=== PATIENT | female | born 1945 | race Hispanic/Latino ===

== ENCOUNTER → 2017-06-24 | Outpatient (CLI) | payer OTHER | END | disposition home or self-care (01) | LOC: SHCH 10:03 | PROVIDERS: ATTEND Internal Medicine Cardiovascular Disease | DX: I08.1 Rheumatic disorders of both mitral and tricuspid valves (principal); I10 Essential (primary) hypertension | CPT/HCPCS: 93306 ==

== ENCOUNTER → 2017-11-28 | Outpatient (CLI) | payer OTHER | END | disposition home or self-care (01) | LOC: RAH 08:51 | PROVIDERS: ATTEND Family Medicine | DX: J90 Pleural effusion, not elsewhere classified (principal); R10.11 Right upper quadrant pain; Z90.49 Acquired absence of other specified parts of digestive tract | CPT/HCPCS: 76700 ==

== ENCOUNTER → 2018-04-28 | Outpatient (CLI) | payer OTHER | END | disposition home or self-care (01) | LOC: RAH 14:56 | PROVIDERS: ATTEND Family Medicine | DX: M79.9 Soft tissue disorder, unspecified (principal) | CPT/HCPCS: 76705 ==

== ENCOUNTER 2018-07-25 09:05 | Inpatient (IN) | payer OTHER ==
[~2018-07-25] VITALS: Ht 154.9 cm; Wt 88.4 kg
[2018-07-25 09:55] LABS: BASOPHILS % (AUTO) 0.6 % (0.0-5.0); EOSINOPHILS % (AUTO) 0.3 % (0.0-8.0); HEMATOCRIT 29.1 % (36-48); LYMPHOCYTES % (AUTO) 4.2 % (21.0-51.0); MEAN CORPUSCULAR HEMOGLOBIN 29.7 pg (27.0-33.0); MEAN CORPUSCULAR HGB CONC 32.4 g/dL (32.0-36.0); MEAN CORPUSCULAR VOLUME 91.6 fL (79-99); MONOCYTES % (AUTO) 4.8 % (3.0-13.0); NEUTROPHILS % (AUTO) 90.1 % (40.0-77.0); PLATELET COUNT (AUTO) 231 K/uL (130-400); RED BLOOD CELL COUNT(AUTO) 3.18 MIL/uL (4.00-5.50); RED CELL DISTRIBUTION WIDTH 18.1 % (11.0-15.5); WHITE BLOOD COUNT (AUTO) 12.1 K/uL (4.8-10.8)
[2018-07-25 10:08] LABS: ALBUMIN 2.4 g/dL (3.5-5.0); BILIRUBIN,TOTAL 0.8 mg/dL (0.2-1.0); POTASSIUM 5.4 mmol/L (3.5-5.1); TOTAL PROTEIN, SERUM 6.4 g/dL (6.0-8.3)
[2018-07-25 10:19] LABS: CREATININE 8.6 mg/dL (0.5-1.5)
[2018-07-25] MEDS ORDERED: IBUPROFEN 600 MG TABLET ONE (10:24)
[2018-07-25] MEDS ORDERED: IBUPROFEN 100 MG/5 ML SUSP UDCUP ONE (10:26)
[2018-07-25 10:31] LABS: B-TYPE NATRIURETIC PEPTIDE 3270 pg/mL (0-100)
[2018-07-25] MEDS ORDERED: ASPIRIN 81MG TAB.CHEW ONE (10:37)
[2018-07-25] MEDS ORDERED: SODIUM POLYSTYRENE SULFONATE 15 GM/60 ML ML ONE (11:12)
[2018-07-25] MEDS ORDERED: ONDANSETRON HCL 4 MG/2 ML VIAL IV PRN (11:45)
[2018-07-25] MEDS ORDERED: ACETAMINOPHEN 325 MG TAB PO PRN (11:45)
[2018-07-25] MEDS ORDERED: HYDRALAZINE HCL 20 MG/ML VIAL IV PRN ×2 (11:45→15:39)
[2018-07-25] MEDS ORDERED: NITROGLYCERIN 0.4 MG SL TAB SL PRN (11:45)
[2018-07-25] MEDS ORDERED: LACTULOSE 20 GM/30 ML UDCUP PO PRN (11:45)
[2018-07-25 14:05] LABS: TROPONIN I 0.13 ng/mL (0.00-0.06)
[2018-07-25 18:22] VITALS: BP 118/62
[2018-07-25] MEDS ORDERED: HEPARIN SODIUM 5000UNIT/ML 1ML VIAL IJ PRN (18:30)
[2018-07-25] MEDS ORDERED: 0.9% SODIUM CHLORIDE 1000 ML IV BAG IV PRN (18:30)
[2018-07-25] MEDS ORDERED: SODIUM CHLORIDE 0.9% 1000ML 1,000 ML IV PRN (18:30)
[2018-07-25] MEDS: INSULIN R PO SS1 SQ SCH ×2 (18:49→21:00)
--- NOTE | 2018-07-25 18:50 | NUR ---
DR TAN CAME IN EARLIER TO SEE THE PATIENT AND NOTIFIED DIALYSIS NURSE. DIALYSIS NURSE IS HERE TO GIVE HER TREATMENT. ADMISSION DATABASE IS DONE WITH THE LIMITED INFORMATION THAT THE PATIENT COULD REMEMBER ONLY. SHE WAS INTRODUCED TO THE ROOM ENVIRONMENT, THE CALL LIGHT USE AND THE TV. FALL PREVENTION WAS DISCUSSED WITH HER AND SHE VOICED UNDERSTANDING. BILATERAL 2ND TOES TO THE GREAT TOES ARE OBSERVED RED, MORE PRONOUNCE ON THE RIGHT FOOT. PATIENT STATED THAT SHE HAD HURT THEM WHEN SHE FELL AT HOME. NO OPEN WOUND SEEN ON THE SITES. NON-FUNCTIONING LAVA AND LEFT CHEST PERMA CATH OBSERVED. PATIENT STATED DISCOMFORT TO THE LEGS. WILL ENDORSE HER CARE TO THE INCOMING NURSE.
[2018-07-25 19:52] VITALS: BP 126/70
[2018-07-25 20:09] LABS: TROPONIN I 0.13 ng/mL (0.00-0.06)
[2018-07-25] MEDS: ACETAMINOPHEN 325 MG TAB PO PRN (22:29)
[2018-07-26] VITALS (7 sets, daily range): BP systolic 123–146; BP diastolic 44–78
[2018-07-26] MEDS: TRAMADOL HCL 50 MG TABLET PO PRN ×3 (01:43→16:00)
[2018-07-26] MEDS: INSULIN R PO SS1 SQ SCH ×4 (05:24→21:00)
[2018-07-26] MEDS: ACETAMINOPHEN 325 MG TAB PO PRN ×2 (05:24→19:43)
[2018-07-26 06:45] LABS: TROPONIN I 0.12 ng/mL (0.00-0.06)
[2018-07-26] MEDS ORDERED: AMLO5TAB9 PO (08:38)
[2018-07-26] MEDS ORDERED: UMEC1DIS IH (08:38)
[2018-07-26] MEDS ORDERED: PHEN32.43 PO (08:38)
[2018-07-26] MEDS ORDERED: FLUT15.88 NS (08:38)
[2018-07-26] MEDS ORDERED: FOLI0.8T2 PO (08:38)
[2018-07-26] MEDS ORDERED: CITA10TA13 PO (08:38)
[2018-07-26] MEDS ORDERED: LORA0.5T2 PO (08:38)
[2018-07-26] MEDS ORDERED: MUPI22OI2 TP (08:38)
[2018-07-26] MEDS ORDERED: FOLI1TAB15 PO (08:38)
[2018-07-26] MEDS ORDERED: TRAM50TA4 PO (08:48)
[2018-07-26] MEDS ORDERED: TRIA80OI15 TP (08:48)
[2018-07-26] MEDS ORDERED: ROSU10TA27 PO (08:48)
[2018-07-26] MEDS ORDERED: SENN1TAB53 PO (08:48)
[2018-07-26] MEDS: FAMOTIDINE/PF 20 MG/2 ML VIAL IV SCH (09:51)
[2018-07-26] MEDS ORDERED: MORPHINE SULFATE 2 MG/ML 1ML SYG IV PRN (13:00)
[2018-07-26] MEDS ORDERED: NON-FORMULARY MEDICATION 1 EACH (Umeclidinium Brm/Vilanterol Tr (Anoro Ellipta 62.5-25 Mcg IH PRN (16:00)
[2018-07-26] MEDS ORDERED: LORAZEPAM 0.5 MG TABLET PO PRN (16:00)
[2018-07-26] MEDS: IPRATROPIUM/ALBUTEROL SULFATE 3 ML SOLUTION IH SCH ×2 (19:35→23:28)
[2018-07-26] MEDS: HEPARIN SODIUM 5000UNIT/ML 1ML VIAL SQ SCH (19:44)
[2018-07-26] MEDS ORDERED: TRIAMCINOLONE ACETONIDE 0.1% CREAM 15GM TP PRN (20:52)
[2018-07-26] MEDS ORDERED: OSELTAMIVIR PHOSPHATE 75 MG CAP PO SCH (21:00)
[2018-07-26] MEDS: ROSUVASTATIN CALCIUM 10 MG PO SCH (21:00)
[2018-07-26] MEDS: DOCUSATE SODIUM PO SCH (21:00)
[2018-07-26] MEDS ORDERED: COMPOUND PO MISCELLANEOUS 1 EACH MISC MISC PRN (21:00)
[2018-07-26] MEDS: SENNOSIDES PO SCH (21:00)
[2018-07-26] MEDS: DOXYCYCLINE HYCLATE 100 MG TABLET PO SCH (21:56)
[2018-07-26] MEDS: AMLODIPINE BESYLATE 5 MG TAB PO SCH (21:56)
[2018-07-26] MEDS: OSELTAMIVIR SUSP 15 MG/ML (6 CAPS/29ML) PO SCH ×2 (21:56)
[2018-07-26] MEDS: CITALOPRAM 20 MG TABLET PO SCH (21:57)
[2018-07-26] MEDS: CARVEDILOL 3.125 MG TABLET PO SCH (21:57)
[2018-07-26] MEDS: HYDROMORPHONE HCL 0.5 MG/0.5 ML ML IVP PRN (22:03)
[2018-07-27 04:00] VITALS: BP 116/76
[2018-07-27 06:12] LABS: HEPATITIS A ANTIBODY IGM Negative (Negative); HEPATITIS B CORE IGM Negative (Negative); HEPATITIS Bs ANTIGEN SCREEN P Negative (Negative)
[2018-07-27 06:14] LABS: HEMATOCRIT 28.1 % (36-48); MEAN CORPUSCULAR HEMOGLOBIN 30.2 pg (27.0-33.0); MEAN CORPUSCULAR VOLUME 91.4 fL (79-99); PLATELET COUNT (AUTO) 217 K/uL (130-400); RED BLOOD CELL COUNT(AUTO) 3.08 MIL/uL (4.00-5.50); RED CELL DISTRIBUTION WIDTH 18.4 % (11.0-15.5); WHITE BLOOD COUNT (AUTO) 7.1 K/uL (4.8-10.8)
[2018-07-27 06:38] LABS: POTASSIUM 4.7 mmol/L (3.5-5.1); THYROID STIMULATING HORMONE 4.79 uIU/mL (0.36-3.74)
[2018-07-27] MEDS: IPRATROPIUM/ALBUTEROL SULFATE 3 ML SOLUTION IH SCH ×4 (07:14→23:13)
[2018-07-27] MEDS: INSULIN R PO SS1 SQ SCH ×4 (07:30→20:42)
[2018-07-27 08:22] VITALS: BP 122/71
[2018-07-27] MEDS: FLUTICASONE PROPIONATE 50MCG/SPRAY 16 GM BOTTLE NS SCH (09:00)
[2018-07-27] MEDS: FOLIC ACID/VITAMIN B COMP W-C 1 MG CAPSULE PO SCH (09:28)
[2018-07-27] MEDS: CARVEDILOL 3.125 MG TABLET PO SCH ×2 (09:29→20:41)
[2018-07-27] MEDS: DOXYCYCLINE HYCLATE 100 MG TABLET PO SCH ×2 (09:29→20:41)
[2018-07-27] MEDS: FOLIC ACID 1 MG TABLET PO SCH (09:29)
[2018-07-27] MEDS: PHENOBARBITAL 1/4 GR TABLET PO SCH (09:29)
[2018-07-27] MEDS: FAMOTIDINE/PF 20 MG/2 ML VIAL IV SCH (09:30)
[2018-07-27] MEDS: HEPARIN SODIUM 5000UNIT/ML 1ML VIAL SQ SCH ×2 (09:31→20:43)
[2018-07-27] MEDS: TRAMADOL HCL 50 MG TABLET PO PRN (09:35)
[2018-07-27] MEDS: OSELTAMIVIR SUSP 15 MG/ML (6 CAPS/29ML) PO SCH ×4 (09:47→20:41)
[2018-07-27 11:30] VITALS: BP 126/65
[2018-07-27] MEDS: HYDROMORPHONE HCL 0.5 MG/0.5 ML ML IVP PRN ×2 (12:26→23:53)
--- NOTE | 2018-07-27 13:52 | NUR ---
DCP CM met with pt discussed dc plans. Pt is semi-independent prior to admission, lives at home alone, daughter lives close by. Has a walker, goes to dialysis TTS. Pt feels safe to go back home, daughter able to assist with transportation and needs as necessary. DC plan to home once stble. CM to cont to follow up. Addendum: 07/28/18 at 1353 by ZURDO GUERRIER LVN CM Amended: Links added.
[2018-07-27] MEDS ORDERED: CARV3.1262 PO (14:50)
[2018-07-27] MEDS ORDERED: DOXY100T2 PO (14:50)
[2018-07-27] MEDS ORDERED: OSEL30CA PO (15:13)
[2018-07-27 16:42] VITALS: BP 117/59
[2018-07-27] MEDS: AMLODIPINE BESYLATE 5 MG TAB PO SCH ×2 (17:56→20:42)
[2018-07-27 19:19] VITALS: BP 125/56
[2018-07-27] MEDS: CITALOPRAM 20 MG TABLET PO SCH (20:42)
[2018-07-27] MEDS: ROSUVASTATIN CALCIUM 10 MG PO SCH (20:43)
[2018-07-27] MEDS: SENNOSIDES PO SCH (20:43)
[2018-07-27] MEDS: DOCUSATE SODIUM PO SCH (20:43)
[2018-07-27 23:19] VITALS: BP 125/63
[2018-07-28 03:59] VITALS: BP 125/63
[2018-07-28] MEDS: INSULIN R PO SS1 SQ SCH ×3 (05:43→20:07)
[2018-07-28] MEDS: IPRATROPIUM/ALBUTEROL SULFATE 3 ML SOLUTION IH SCH ×3 (07:25→23:25)
[2018-07-28] MEDS: TRAMADOL HCL 50 MG TABLET PO PRN (07:40)
[2018-07-28 08:00] VITALS: BP 133/96
--- NOTE | 2018-07-28 08:00 | NUR ---
NOTIFIED ANNALEE GIL FROM [facility] ON NECROTIC APARNA 2ND TOE AND INCREASE DISOLORATION TO BILATERAL FOOT INCLUDING PATIENT COMPLAIN OF PAIN TO BILATERAL LEG. LOUISE ASSESSED PAITENT AND PLACED NEW ORDERS FOR ARTERIAL DUPLEX AND REORDERED 2 DECHO STATING PATIENT NOT CLEARED FOR DISCHARGED UNTIL FURTHER TEST EVALUATION.
[2018-07-28] MEDS: FLUTICASONE PROPIONATE 50MCG/SPRAY 16 GM BOTTLE NS SCH (09:00)
[2018-07-28] MEDS: FAMOTIDINE/PF 20 MG/2 ML VIAL IV SCH (09:00)
[2018-07-28] MEDS: PHENOBARBITAL 1/4 GR TABLET PO SCH (10:32)
[2018-07-28] MEDS: AMLODIPINE BESYLATE 5 MG TAB PO SCH ×2 (10:34→20:07)
[2018-07-28] MEDS: FOLIC ACID/VITAMIN B COMP W-C 1 MG CAPSULE PO SCH (10:34)
[2018-07-28] MEDS: DOXYCYCLINE HYCLATE 100 MG TABLET PO SCH ×2 (10:34→20:08)
[2018-07-28] MEDS: CARVEDILOL 3.125 MG TABLET PO SCH ×2 (10:34→20:08)
[2018-07-28] MEDS: FOLIC ACID 1 MG TABLET PO SCH (10:34)
[2018-07-28] MEDS: HEPARIN SODIUM 5000UNIT/ML 1ML VIAL SQ SCH ×2 (10:40→20:09)
[2018-07-28 12:00] VITALS: BP 132/72
[2018-07-28] MEDS ORDERED: HYDROCORTISONE 1% 28.35 GM CREAM TP PRN (13:00)
[2018-07-28 16:00] VITALS: BP 131/61
--- NOTE | 2018-07-28 18:00 | NUR ---
PATIENT RESTING, NO SIGNS OF DISTRESS OBSERVED. CALL LIGHT WITHIN REACH.
[2018-07-28 20:00] VITALS: BP 132/63
[2018-07-28] MEDS: CITALOPRAM 20 MG TABLET PO SCH (20:08)
[2018-07-28] MEDS: DOCUSATE SODIUM PO SCH (20:14)
[2018-07-28] MEDS: ROSUVASTATIN CALCIUM 10 MG PO SCH (20:14)
[2018-07-28] MEDS: SENNOSIDES PO SCH (20:14)
[2018-07-28] MEDS: HYDROMORPHONE HCL 0.5 MG/0.5 ML ML IVP PRN (22:13)
[2018-07-28 23:43] VITALS: BP 112/52
[2018-07-29 04:00] VITALS: BP 123/63
[2018-07-29] MEDS: HYDROMORPHONE HCL 0.5 MG/0.5 ML ML IVP PRN (05:06)
[2018-07-29] MEDS: INSULIN R PO SS1 SQ SCH ×3 (06:04→16:20)
[2018-07-29] MEDS: IPRATROPIUM/ALBUTEROL SULFATE 3 ML SOLUTION IH SCH ×2 (06:21→11:37)
--- NOTE | 2018-07-29 07:50 | NUR ---
ASSESSMENT: RECEIVED SITTING UP IN BED, EXPLAINED POC AND UNDERSTANDING VERBALIZED, DENIES PAIN. CALL NAGEL AT HER SIDE. UNDERSTANDS TO CALL FOR ASSISSTANCE WHEN NEEDING UP.
[2018-07-29 08:00] VITALS: BP 140/67
--- NOTE | 2018-07-29 09:09 | NUR ---
DIALYSIS: DIALYSIS IN PROGRESS, PT ASLEEP. SAMIR FOLEY RN (DIALYSIS NURSE AT BEDSIDE).
[2018-07-29] MEDS: DOXYCYCLINE HYCLATE 100 MG TABLET PO SCH (09:19)
[2018-07-29] MEDS: AMLODIPINE BESYLATE 5 MG TAB PO SCH (09:19)
[2018-07-29] MEDS: CARVEDILOL 3.125 MG TABLET PO SCH (09:20)
[2018-07-29] MEDS: HEPARIN SODIUM 5000UNIT/ML 1ML VIAL SQ SCH (09:24)
[2018-07-29] MEDS: FAMOTIDINE/PF 20 MG/2 ML VIAL IV SCH (09:25)
[2018-07-29] MEDS ORDERED: NITROGLYCERIN 0.4 MG SL TAB SL PRN (09:30)
[2018-07-29] MEDS ORDERED: SODIUM CHLORIDE 0.9% 1000ML 1,000 ML IV PRN (09:30)
[2018-07-29] MEDS ORDERED: 0.9% SODIUM CHLORIDE 1000 ML IV BAG IV PRN (09:30)
[2018-07-29] MEDS ORDERED: ACETAMINOPHEN 325 MG TAB PO PRN (09:30)
[2018-07-29] MEDS ORDERED: HEPARIN SODIUM 5000UNIT/ML 1ML VIAL IJ PRN (09:30)
[2018-07-29] MEDS ORDERED: LIDOCAINE HCL-MPF 1% 2ML VIAL IJ PRN (09:30)
[2018-07-29] MEDS: FOLIC ACID 1 MG TABLET PO SCH (10:02)
[2018-07-29] MEDS: PHENOBARBITAL 1/4 GR TABLET PO SCH (10:21)
[2018-07-29] MEDS: FOLIC ACID/VITAMIN B COMP W-C 1 MG CAPSULE PO SCH (10:22)
[2018-07-29] MEDS: TRAMADOL HCL 50 MG TABLET PO PRN (10:31)
--- NOTE | 2018-07-29 11:45 | NUR ---
DIALYSIS: REMOVED 2.8 LTS OF FLUID PER DIALYSIS NURSE. MARISA WELL. RELAXED.
[2018-07-29 11:53] VITALS: BP 120/57
--- NOTE | 2018-07-29 11:55 | NUR ---
ELIMINATION: ASSISSTED TO BEDSIDE COMMODE AND HAD BM AND VOIDED LG AMTS OF YELLOW URINE. DENIES PAIN AND NO SOB NOTED.
--- NOTE | 2018-07-29 12:16 | NUR ---
ASSESSMENT: DR MON HERE AND REVIEWED ALL LABS AND RADIOLOGY RESULTS, ARTERIAL DUPLEX RESULTS, ASSESSED PT AND DISCUSSED POC FOR DISCHARGE HOME TODAY, PT STATES FAMILY CANNOT PICK HER UP UNTIL LATE TONIGHT, DR MON EXPLAINS THAT IS OK.
--- NOTE | 2018-07-29 12:24 | NUR ---
NUTRITION: SITTING UP IN BED, EATING HER LUNCH.
--- NOTE | 2018-07-29 13:29 | NUR ---
ACTIVITY: PT PERSONNEL A NELY THERAPIST HERE TO WALK PT.
--- NOTE | 2018-07-29 13:50 | NUR ---
ACTIVITY: MARISA AMB WELL.
[2018-07-29 16:00] VITALS: BP 134/62
--- NOTE | 2018-07-29 16:00 | NUR ---
ACTIVITY: AMB IN ROOM WITH HER WALKER, STEADY GAIT.
--- NOTE | 2018-07-29 16:30 | NUR ---
Patient's daughter Loan was called to come and supervisor picking crew pt since she has orders to be discharged. She said she will have her brother Sha come supervisor picking crew patient.
--- NOTE | 2018-07-29 18:10 | NUR ---
discharge: DISCHARGE INSTRUCTIONS GIVEN TO PT AND [id number] ON SELF CARE , DIABETIC PT ON DIALYSIS. REVIEWED RX'S AND TO MAKE APPOINTMENTS WITH DR Alexis ROJO AND DR ISSA FOR 1 WEEK FOLLOW UP. S&S OF LOW AND HIGH BLOOD SUGAR , INTERVENTIONS TO TAKE FOR EACH. TO COME TO THE ER DEPT FOR ANY PROBLEMS. FULL UNDERSTANDING VERBALIZED AND COPIES OF ALL INSTRUCTIONS GIVEN TO PT'S [id number].
--- NOTE | 2018-07-29 18:20 | NUR ---
DISCHARGE : DISCHARGED HOME VIA W/C TO PRIVATE CAR WITH HER SON.
[2018-07-29] MEDS ORDERED: COMPOUNDING VEHICLE NO 8 PO SCH ×2 (21:00)
[2018-07-29] MEDS ORDERED: OSELTAMIVIR PHOSPHATE PO SCH ×2 (21:00)
== END 2018-07-29 18:20 | disposition home or self-care (01) | DRG 291 ==
LOC: EDH 09:05 → OBSVTOIN 11:45 → EDHIP 11:45 → 3BH 17:53
PROVIDERS: ADMIT Internal Medicine Critical Care Medicine; ATTEND Internal Medicine Critical Care Medicine
PROC: 5A1D70Z Performance of Urinary Filtration, Intermittent, Less than 6 Hours Per Day (ICD-10-PCS; principal; 2018-07-25)
PROC: 5A1D70Z Performance of Urinary Filtration, Intermittent, Less than 6 Hours Per Day (ICD-10-PCS; 2018-07-27)
PROC: 5A1D70Z Performance of Urinary Filtration, Intermittent, Less than 6 Hours Per Day (ICD-10-PCS; 2018-07-29)
DX: I13.2 Hypertensive heart and chronic kidney disease with heart failure and with stage 5 chronic kidney disease, or end stage renal disease (principal); N18.6 End stage renal disease; J96.21 Acute and chronic respiratory failure with hypoxia; I50.31 Acute diastolic (congestive) heart failure; E87.1 Hypo-osmolality and hyponatremia; E44.1 Mild protein-calorie malnutrition; I47.1 Supraventricular tachycardia; E87.70 Fluid overload, unspecified; I42.0 Dilated cardiomyopathy; J10.1 Influenza due to other identified influenza virus with other respiratory manifestations; E11.22 Type 2 diabetes mellitus with diabetic chronic kidney disease; E87.5 Hyperkalemia; G40.909 Epilepsy, unspecified, not intractable, without status epilepticus; E78.5 Hyperlipidemia, unspecified; E11.21 Type 2 diabetes mellitus with diabetic nephropathy; D64.9 Anemia, unspecified; I34.0 Nonrheumatic mitral (valve) insufficiency; E11.51 Type 2 diabetes mellitus with diabetic peripheral angiopathy without gangrene; E66.01 Morbid (severe) obesity due to excess calories; F41.9 Anxiety disorder, unspecified; I25.10 Atherosclerotic heart disease of native coronary artery without angina pectoris; Z68.36 Body mass index [BMI] 36.0-36.9, adult; Z99.2 Dependence on renal dialysis; Z79.899 Other long term (current) drug therapy; Z91.15 Patient's noncompliance with renal dialysis; Z99.81 Dependence on supplemental oxygen; Z88.1 Allergy status to other antibiotic agents; Z88.8 Allergy status to other drugs, medicaments and biological substances
CPT/HCPCS: 36415; 70450; 71045; 78582; 80048; 80053; 80074; 82550; 82948; 83690; 83874; 83880; 84132; 84443; 84484; 85025; 85027; 87804; 90935; 93005; 93306; 93925; 93970; 94640; 94664; 96372; 96374; 96375; 96376; 97039; A9540; A9558; G0378; J1170; J1644; J3490; J7030

== ENCOUNTER 2018-08-31 15:28 | Inpatient (IN) | payer OTHER ==
[~2018-08-31] VITALS: Ht 167.6 cm; Wt 85.9 kg
[~2018-08-31 15:28] MED LIST: AMLO5TAB9 PO; CARV3.1262 PO; CITA10TA13 PO; DOXY100T2 PO; FLUT15.88 NS; FOLI0.8T2 PO; FOLI1TAB15 PO; LORA0.5T2 PO; MUPI22OI2 TP; OSEL30CA PO; PHEN32.43 PO; ROSU10TA28 PO; SENN1TAB53 PO; TRAM50TA4 PO; TRIA80OI15 TP; UMEC1DIS IH
[2018-08-31] MEDS ORDERED: ZOSYN 3.375GM+NS 50ML 50 ML IV ONE (16:10)
[2018-08-31 16:13] LABS: BASOPHILS % (AUTO) 0.3 % (0.0-5.0); EOSINOPHILS % (AUTO) 0.1 % (0.0-8.0); HEMATOCRIT 32.6 % (36-48); LYMPHOCYTES % (AUTO) 7.2 % (21.0-51.0); MEAN CORPUSCULAR HEMOGLOBIN 32.9 pg (27.0-33.0); MEAN CORPUSCULAR HGB CONC 32.9 g/dL (32.0-36.0); MEAN CORPUSCULAR VOLUME 100.3 fL (79-99); MONOCYTES % (AUTO) 4.6 % (3.0-13.0); NEUTROPHILS % (AUTO) 87.8 % (40.0-77.0); NUCLEATED RED BLOOD CELLS 0.1 % (0.0-0.19); PLATELET COUNT (AUTO) 154 K/uL (130-400); RED BLOOD CELL COUNT(AUTO) 3.25 MIL/uL (4.00-5.50); RED CELL DISTRIBUTION WIDTH 24.7 % (11.0-15.5); WHITE BLOOD COUNT (AUTO) 7.3 K/uL (4.8-10.8)
[2018-08-31 16:23] LABS: CREATININE 4.2 mg/dL (0.5-1.5); POTASSIUM 3.9 mmol/L (3.5-5.1)
[2018-08-31 16:25] LABS: INR 1.12 (0.85-1.15); PARTIAL THROMBOPLASTIN TIME 23.4 SEC (26.3-35.5); PROTHROMBIN TIME 11.7 SEC (9.6-11.6)
[2018-08-31 16:32] LABS: ALBUMIN 2.3 g/dL (3.5-5.0); BILIRUBIN,TOTAL 0.5 mg/dL (0.2-1.0); CRP QUANTITATIVE 58.2 mg/L (0.00-9.0); TOTAL PROTEIN, SERUM 6.9 g/dL (6.0-8.3); TROPONIN I 0.07 ng/mL (0.00-0.06)
[2018-08-31] MEDS ORDERED: VANCOMYCIN 1.25 GM in SODIUM CHLORIDE 0.9% 250 ML IV SCH (17:15)
[2018-08-31 17:16] LABS: ERYTHROCYTE SEDIMENTATION RATE 48 MM/HR (0-30)
[2018-08-31] MEDS ORDERED: COMPOUND IV REFRIGERATED 1 EACH IVSOLN MISC PRN (18:00)
[2018-08-31] MEDS ORDERED: VANCOMYCIN PROTOCOL PER PHARMACY IV SCH (18:00)
[2018-08-31] MEDS: INSULIN R PO SS1 SQ SCH (21:00)
[2018-08-31 21:25] VITALS: BP 127/50
[2018-08-31] MEDS: ZOSYN 3.375GM+NS 50ML 50 ML IV SCH (22:23)
[2018-08-31] MEDS ORDERED: FLUT16H NASAL (23:07)
[2018-08-31] MEDS ORDERED: AMLO5TAB4 PO (23:07)
[2018-08-31] MEDS ORDERED: PHEN32.43 PO (23:07)
[2018-08-31] MEDS ORDERED: ROSU10TA22 PO (23:07)
[2018-08-31] MEDS ORDERED: UMEC1DIS IH (23:07)
[2018-08-31] MEDS ORDERED: CALC667C10 PO (23:07)
[2018-08-31] MEDS ORDERED: CITA10TA13 PO (23:07)
[2018-08-31] MEDS ORDERED: HYDR-4060 PO (23:07)
[2018-08-31] MEDS ORDERED: MUPI15C TP (23:07)
[2018-08-31] MEDS ORDERED: FOLI0.8T22 PO (23:07)
[2018-08-31] MEDS ORDERED: CARV3.1262 PO (23:07)
[2018-09-01] VITALS (7 sets, daily range): BP systolic 109–140; BP diastolic 53–70
[2018-09-01] MEDS ORDERED: HYDROCODONE/ACETAMINOPHEN 5/325 MG TAB ONE (03:16)
[2018-09-01] MEDS: INSULIN R PO SS1 SQ SCH ×4 (06:08→21:00)
[2018-09-01] MEDS: CALCIUM ACETATE 667 MG CAPSULE PO SCH ×2 (08:00→17:00)
[2018-09-01] MEDS ORDERED: FLUTICASONE PROPIONATE 50MCG/SPRAY 16 GM BOTTLE EN SCH (09:00)
[2018-09-01] MEDS ORDERED: Umeclidinium Brm/Vilanterol Tr (Anoro Ellipta 62.5-25 Mcg PO PRN (09:00)
[2018-09-01] MEDS: HYDROCODONE/ACETAMINOPHEN 5/325 MG TAB PO PRN ×2 (10:25→17:17)
[2018-09-01] MEDS: AMLODIPINE BESYLATE 5 MG TAB PO SCH (10:26)
[2018-09-01] MEDS: CARVEDILOL 3.125 MG TABLET PO SCH ×2 (10:26→20:47)
[2018-09-01] MEDS: FOLIC ACID/VITAMIN B COMP W-C 1 MG CAP/TAB PO SCH (10:27)
[2018-09-01] MEDS: ZOSYN 3.375GM+NS 50ML 50 ML IV SCH ×2 (10:27→20:46)
[2018-09-01] MEDS: PHENOBARBITAL 1/4 GR TABLET PO SCH (10:39)
[2018-09-01] MEDS: FLUTICASONE PROPIONATE 50MCG/SPRAY 16 GM BOTTLE EN SCH (12:14)
--- NOTE | 2018-09-01 13:06 | NUR ---
PODIATRY CONSULT Spoke to Cindy at Dr. Salter's offce and informed her of consult. Stated she will notify Dr. salter. Also, face sheet faxed to her as requested.
--- NOTE | 2018-09-01 13:25 | NUR ---
CARDIOLOGY CONSULT Left voicemail with Kimberly at [facility] at [phone] Antunez for this patient for PVD.
[2018-09-01] MEDS ORDERED: DIPH,PERTUSS(ACELL),TET VAC/PF 0.5 ML VIAL IM ONE (15:00)
--- NOTE | 2018-09-01 17:36 | NUR ---
CONSENTS Obtained consent for aortogram with runoffs abdominal and for hemodialysis and in chart. Hemodialysis nurse Abeba aware of order for HD tomorrow and that patient is [facility] HD schedule.
[2018-09-01] MEDS ORDERED: IOHEXOL-350 50ML VIAL IV ONE (17:52)
[2018-09-01] MEDS ORDERED: IOHEXOL-350 75 ML VIAL IV ONE (17:52)
[2018-09-01] MEDS: CITALOPRAM 20 MG TABLET PO SCH (20:47)
[2018-09-01] MEDS: ROSUVASTATIN CALCIUM PO SCH (21:00)
[2018-09-02 04:41] LABS: BASOPHILS % (AUTO) 0.5 % (0.0-5.0); EOSINOPHILS % (AUTO) 0.2 % (0.0-8.0); HEMATOCRIT 30.2 % (36-48); LYMPHOCYTES % (AUTO) 9.5 % (21.0-51.0); MEAN CORPUSCULAR HEMOGLOBIN 33.1 pg (27.0-33.0); MEAN CORPUSCULAR HGB CONC 32.4 g/dL (32.0-36.0); MONOCYTES % (AUTO) 7.8 % (3.0-13.0); NUCLEATED RED BLOOD CELLS 0.2 % (0.0-0.19); PLATELET COUNT (AUTO) 135 K/uL (130-400); RED BLOOD CELL COUNT(AUTO) 2.96 MIL/uL (4.00-5.50); RED CELL DISTRIBUTION WIDTH 25.1 % (11.0-15.5); WHITE BLOOD COUNT (AUTO) 6.4 K/uL (4.8-10.8)
[2018-09-02 04:50] LABS: MAGNESIUM 2.3 mg/dL (1.80-2.40); PHOSPHORUS 5.5 mg/dL (2.5-4.9); POTASSIUM 4.4 mmol/L (3.5-5.1)
[2018-09-02] MEDS: INSULIN R PO SS1 SQ SCH ×4 (06:36→21:00)
[2018-09-02 08:00] VITALS: BP 126/65
[2018-09-02] MEDS: CALCIUM ACETATE 667 MG CAPSULE PO SCH ×2 (08:00→16:10)
[2018-09-02] MEDS: CARVEDILOL 3.125 MG TABLET PO SCH ×2 (09:00→22:06)
[2018-09-02] MEDS: ENOXAPARIN SODIUM 100 MG/1 ML SQ SCH (09:00)
[2018-09-02] MEDS: ZOSYN 3.375GM+NS 50ML 50 ML IV SCH ×2 (09:00→22:09)
[2018-09-02] MEDS: AMLODIPINE BESYLATE 5 MG TAB PO SCH (09:00)
[2018-09-02] MEDS: FOLIC ACID/VITAMIN B COMP W-C 1 MG CAP/TAB PO SCH (09:00)
[2018-09-02] MEDS ORDERED: 0.9% SODIUM CHLORIDE 1000 ML IV BAG IV PRN (10:15)
[2018-09-02] MEDS ORDERED: SODIUM CHLORIDE 0.9% 1000ML 1,000 ML IV PRN (10:15)
[2018-09-02] MEDS ORDERED: ACETAMINOPHEN 325 MG TAB PO PRN (10:15)
[2018-09-02] MEDS ORDERED: NITROGLYCERIN 0.4 MG SL TAB SL PRN (10:15)
[2018-09-02] MEDS: HEPARIN SODIUM 5000UNIT/ML 1ML VIAL IJ PRN (10:30)
[2018-09-02 12:00] VITALS: BP 137/57
[2018-09-02] MEDS: HYDROCODONE/ACETAMINOPHEN 5/325 MG TAB PO PRN (14:11)
--- NOTE | 2018-09-02 14:11 | NUR ---
Patient crying in pain, when asked on pain scale she stated her pain level is a 10, medicated with [place]. Daughter visiting in the room.
--- NOTE | 2018-09-02 14:45 | NUR ---
PLAN OF CARE Dr. Salter was notified duwing his rounds that Dr. Antunez had cleared patient for surgery. Dr. Salter stated he will not do any surgery until patient has all her cardiovascular work done. ANNALEE Zurita for Dr. Antunez, was informed in person that Dr. Salter will do no surgery until patient has all cardiovascular work done. No further orders received.
[2018-09-02] MEDS ORDERED: MORPHINE SULFATE 2 MG/ML 1ML SYG IM PRN (15:45)
[2018-09-02 16:00] VITALS: BP 121/64
[2018-09-02] MEDS: PHENOBARBITAL 1/4 GR TABLET PO SCH (16:10)
[2018-09-02] MEDS: VANCOMYCIN 1.25 GM in SODIUM CHLORIDE 0.9% 250 ML IV NR (16:11)
[2018-09-02] MEDS: FLUTICASONE PROPIONATE 50MCG/SPRAY 16 GM BOTTLE EN SCH (16:32)
[2018-09-02] MEDS ORDERED: VANCOMYCIN 1.25 GM in SODIUM CHLORIDE 0.9% 250 ML IV SCH (17:00)
--- NOTE | 2018-09-02 17:00 | NUR ---
PAIN Patient received orders for morphine for pain as requested by her and approved by Dr. Goddard. Patient has pain mostly to her back. THis pain comes and it is level 10. Then pain goes away and she is at times in no pain at all. She explained this pain comes because she has had several falls throughout her life and this pain is sequelae from those times.
[2018-09-02] MEDS: MORPHINE SULFATE 2 MG/ML 1ML SYG IV PRN ×2 (17:31→22:42)
--- NOTE | 2018-09-02 18:06 | NUR ---
D/C PLAN CM spoke to pt regarding d/c planning. Pt states she currently resides in assisted. CM asked pt which facility and could not recall. CM reviewed chart an no information available. CM obtained consent from pt to call daughter to verify information. CM called phone number for daughter Loan in facesheet. No answer. CM to reattempt contact tomorrow. Plan for now is to return to a assisted. Pt states her fpc plan to is to move in with jacob in [place]. CM to f/u. Addendum: 09/02/18 at 1809 by MISSY SALCIDO CM Amended: Links added.
--- NOTE | 2018-09-02 18:08 | NUR ---
DNR Received order from Dr. Goddard to make patient DNR as patient and daughter at bedside talked abuot it and requested this status. Patient verbalized she does want to be DNR and signed paperwork. She stated for hemodialysis she would give it a try but refused blood/blood products and refused tube feedings. Order entered in computer and signed DNR formed filed under Advanced Directives.
--- NOTE | 2018-09-02 19:12 | NUR ---
MORPHINE MEDICATION Administered 1mg of morphine intravenously at 1620. Medication was scanned as soon as a computer was available due to having issues with scanner but patient in a lot of pain. Incoming nurse Cat made aware that administration time for next dose of morphine if needed is at 2020.
[2018-09-02 19:20] VITALS: BP 127/53
[2018-09-02] MEDS: ROSUVASTATIN CALCIUM PO SCH (21:00)
[2018-09-02] MEDS: CITALOPRAM 20 MG TABLET PO SCH (22:06)
[2018-09-02 23:20] VITALS: BP 114/58
[2018-09-03 03:25] VITALS: BP 131/62
[2018-09-03 05:52] LABS: BASOPHILS % (AUTO) 0.9 % (0.0-5.0); EOSINOPHILS % (AUTO) 0.3 % (0.0-8.0); HEMATOCRIT 30.9 % (36-48); LYMPHOCYTES % (AUTO) 12.1 % (21.0-51.0); MEAN CORPUSCULAR HEMOGLOBIN 33.2 pg (27.0-33.0); MEAN CORPUSCULAR HGB CONC 32.1 g/dL (32.0-36.0); MEAN CORPUSCULAR VOLUME 103.4 fL (79-99); MONOCYTES % (AUTO) 9.8 % (3.0-13.0); NEUTROPHILS % (AUTO) 76.9 % (40.0-77.0); NUCLEATED RED BLOOD CELLS 0.1 % (0.0-0.19); PLATELET COUNT (AUTO) 130 K/uL (130-400); RED BLOOD CELL COUNT(AUTO) 2.99 MIL/uL (4.00-5.50); RED CELL DISTRIBUTION WIDTH 25.5 % (11.0-15.5); WHITE BLOOD COUNT (AUTO) 6.3 K/uL (4.8-10.8)
[2018-09-03 06:09] LABS: CREATININE 4.8 mg/dL (0.5-1.5); MAGNESIUM 2.2 mg/dL (1.80-2.40); POTASSIUM 4.4 mmol/L (3.5-5.1)
[2018-09-03] MEDS: INSULIN R PO SS1 SQ SCH ×4 (06:32→21:00)
[2018-09-03 08:02] VITALS: BP 124/65
[2018-09-03] MEDS: PHENOBARBITAL 1/4 GR TABLET PO SCH (08:32)
[2018-09-03] MEDS: ZOSYN 3.375GM+NS 50ML 50 ML IV SCH ×2 (08:33→20:21)
[2018-09-03] MEDS: FOLIC ACID/VITAMIN B COMP W-C 1 MG CAP/TAB PO SCH (08:33)
[2018-09-03] MEDS: AMLODIPINE BESYLATE 5 MG TAB PO SCH (08:33)
[2018-09-03] MEDS: CALCIUM ACETATE 667 MG CAPSULE PO SCH ×2 (08:33→17:07)
[2018-09-03] MEDS: CARVEDILOL 3.125 MG TABLET PO SCH ×2 (08:34→22:27)
[2018-09-03] MEDS: HYDROCODONE/ACETAMINOPHEN 5/325 MG TAB PO PRN ×2 (08:34→15:23)
[2018-09-03] MEDS: FLUTICASONE PROPIONATE 50MCG/SPRAY 16 GM BOTTLE EN SCH (08:35)
[2018-09-03] MEDS: ENOXAPARIN SODIUM 100 MG/1 ML SQ SCH (08:39)
[2018-09-03] MEDS: MORPHINE SULFATE 2 MG/ML 1ML SYG IV PRN (11:23)
[2018-09-03 12:00] VITALS: BP 123/58
--- NOTE | 2018-09-03 12:15 | NUR ---
CM NOTE cm received notification from Regla with [facility] that pt is from their facility.
[2018-09-03] MEDS: VANCOMYCIN 1.25 GM in SODIUM CHLORIDE 0.9% 250 ML IV NR (15:28)
[2018-09-03 16:00] VITALS: BP 121/59
[2018-09-03] MEDS: HEPARIN SODIUM 5000UNIT/ML 1ML VIAL SQ SCH (17:08)
[2018-09-03 19:15] VITALS: BP 129/64
[2018-09-03] MEDS: ROSUVASTATIN CALCIUM PO SCH (21:00)
[2018-09-03] MEDS: CITALOPRAM 20 MG TABLET PO SCH (22:27)
[2018-09-03 23:20] VITALS: BP 143/71
[2018-09-04] MEDS: HEPARIN SODIUM 5000UNIT/ML 1ML VIAL SQ SCH ×2 (03:12→15:23)
[2018-09-04 03:20] VITALS: BP 121/57
[2018-09-04 06:10] LABS: HEMATOCRIT 31.3 % (36-48); MEAN CORPUSCULAR HEMOGLOBIN 33.4 pg (27.0-33.0); MEAN CORPUSCULAR HGB CONC 32.2 g/dL (32.0-36.0); MEAN CORPUSCULAR VOLUME 103.6 fL (79-99); NUCLEATED RED BLOOD CELLS 0.1 % (0.0-0.19); PLATELET COUNT (AUTO) 159 K/uL (130-400); RED BLOOD CELL COUNT(AUTO) 3.02 MIL/uL (4.00-5.50); RED CELL DISTRIBUTION WIDTH 25.1 % (11.0-15.5); WHITE BLOOD COUNT (AUTO) 5.7 K/uL (4.8-10.8)
[2018-09-04 06:23] LABS: INR 1.16 (0.85-1.15); PARTIAL THROMBOPLASTIN TIME 30.5 SEC (26.3-35.5); PROTHROMBIN TIME 12.1 SEC (9.6-11.6)
[2018-09-04 06:25] LABS: CREATININE 5.9 mg/dL (0.5-1.5); POTASSIUM 4.5 mmol/L (3.5-5.1)
[2018-09-04] MEDS: INSULIN R PO SS1 SQ SCH ×4 (06:37→20:51)
[2018-09-04 07:00] VITALS: BP 116/63
[2018-09-04] MEDS: FOLIC ACID/VITAMIN B COMP W-C 1 MG CAP/TAB PO SCH (09:15)
[2018-09-04] MEDS: PHENOBARBITAL 1/4 GR TABLET PO SCH (09:16)
[2018-09-04] MEDS: CALCIUM ACETATE 667 MG CAPSULE PO SCH ×2 (09:16→16:49)
[2018-09-04] MEDS: AMLODIPINE BESYLATE 5 MG TAB PO SCH (09:16)
[2018-09-04] MEDS: HYDROCODONE/ACETAMINOPHEN 5/325 MG TAB PO PRN (09:16)
[2018-09-04] MEDS: CARVEDILOL 3.125 MG TABLET PO SCH ×2 (09:17→20:52)
[2018-09-04] MEDS: FLUTICASONE PROPIONATE 50MCG/SPRAY 16 GM BOTTLE EN SCH (09:19)
[2018-09-04] MEDS: ZOSYN 3.375GM+NS 50ML 50 ML IV SCH ×2 (09:19→20:51)
[2018-09-04 11:00] VITALS: BP 115/60
[2018-09-04] MEDS: VANCOMYCIN 1.25 GM in SODIUM CHLORIDE 0.9% 250 ML IV NR (15:18)
--- NOTE | 2018-09-04 15:19 | NUR ---
PAULO HOLD VANCO PER EMAR NOTE TO NOT GIVE VANCO ON NON DIALYSIS DAYS.
[2018-09-04 16:00] VITALS: BP 122/61
[2018-09-04 20:00] VITALS: BP 129/68
[2018-09-04] MEDS: ROSUVASTATIN CALCIUM PO SCH (20:53)
[2018-09-04] MEDS: CITALOPRAM 20 MG TABLET PO SCH (20:55)
[2018-09-05] VITALS (21 sets, daily range): BP systolic 108–135; BP diastolic 52–73
[2018-09-05] MEDS: HEPARIN SODIUM 5000UNIT/ML 1ML VIAL SQ SCH ×2 (03:45→15:45)
[2018-09-05] MEDS: INSULIN R PO SS1 SQ SCH ×4 (06:43→20:12)
[2018-09-05 07:15] LABS: HEPATITIS A ANTIBODY IGM Negative (Negative); HEPATITIS B CORE IGM Negative (Negative); HEPATITIS Bs ANTIGEN SCREEN P Negative (Negative)
[2018-09-05] MEDS: CALCIUM ACETATE 667 MG CAPSULE PO SCH ×2 (08:00→17:08)
[2018-09-05] MEDS: CARVEDILOL 3.125 MG TABLET PO SCH ×2 (09:00→20:10)
[2018-09-05] MEDS: HYDROCODONE/ACETAMINOPHEN 5/325 MG TAB PO PRN ×2 (09:17→18:51)
[2018-09-05] MEDS: FLUTICASONE PROPIONATE 50MCG/SPRAY 16 GM BOTTLE EN SCH (11:43)
[2018-09-05] MEDS: ZOSYN 3.375GM+NS 50ML 50 ML IV SCH ×2 (11:44→20:09)
[2018-09-05] MEDS: VANCOMYCIN 1.25 GM in SODIUM CHLORIDE 0.9% 250 ML IV NR (11:45)
--- NOTE | 2018-09-05 12:00 | NUR ---
DIALYSIS PATIENT RECEIVED DIALYSIS TODAY FROM 0803 TO 1104 HOURS. REMOVED WAS 1.4 LITERS AND PATIENT TOLERATED PROCEDURE WITHOUT INCIDENT. VITALS WITHIN NORMAL LIMITS.
[2018-09-05 12:11] LABS: CREATININE 3.7 mg/dL (0.5-1.5); POTASSIUM 3.3 mmol/L (3.5-5.1)
[2018-09-05 12:15] LABS: MEAN CORPUSCULAR HEMOGLOBIN 33.8 pg (27.0-33.0); MEAN CORPUSCULAR HGB CONC 33.2 g/dL (32.0-36.0); MEAN CORPUSCULAR VOLUME 102.1 fL (79-99); NUCLEATED RED BLOOD CELLS 0.1 % (0.0-0.19); PLATELET COUNT (AUTO) 153 K/uL (130-400); RED BLOOD CELL COUNT(AUTO) 2.84 MIL/uL (4.00-5.50); RED CELL DISTRIBUTION WIDTH 25.5 % (11.0-15.5); WHITE BLOOD COUNT (AUTO) 5.1 K/uL (4.8-10.8)
[2018-09-05] MEDS ORDERED: LIDOCAINE HCL 1% 20 ML VIAL ONE (12:35)
[2018-09-05] MEDS ORDERED: BUPIVACAINE/PF 0.5% 30ML VIAL ONE (12:35)
[2018-09-05] MEDS ORDERED: PROPOFOL 10 MG/ML 20ML VIAL IV ONE (13:16)
[2018-09-05] MEDS ORDERED: MEPERIDINE-PF 25 MG/ML SYG ONE (14:27)
[2018-09-05] MEDS ORDERED: DEXTROSE 50%-WATER 50 ML DISP.SYRIN IV ONE (16:15)
[2018-09-05] MEDS: AMLODIPINE BESYLATE 5 MG TAB PO SCH (17:08)
[2018-09-05] MEDS: FOLIC ACID/VITAMIN B COMP W-C 1 MG CAP/TAB PO SCH (17:09)
[2018-09-05] MEDS: PHENOBARBITAL 1/4 GR TABLET PO SCH (17:09)
--- NOTE | 2018-09-05 17:54 | NUR ---
Nutrition Intervention: Nutrition screen based on LOS x 5 days. 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 Pt. on 75gm CCD Renal Dialysis Soft Rains diet with good p.o. intake, as per pt. Labs reviewed(Alb 2.3, BUN 23, Creat 3.7, GFR 13). Spoke with pt. regarding protein supplementation with ProMod and pt. agreed to try. LBM: 09/05/18, per pt. SR-14, elastic. BMI: 33.4, obesity Grade 1. Pt. reports has been on HD for 7 years. Pt. refused Renal Dialysis diet education at this time. Recommendations: 1) Continue current diet. 2) Rec. 30ml ProMod TID with meals. 3) Continue to monitor pt's nutritional status. 4) Consult RD as nutrition concerns arise. Addendum: 09/05/18 at [address] Amended: Links added.
[2018-09-05] MEDS: CITALOPRAM 20 MG TABLET PO SCH (20:10)
[2018-09-05] MEDS: ROSUVASTATIN CALCIUM PO SCH (20:11)
[2018-09-06] VITALS (7 sets, daily range): BP systolic 100–127; BP diastolic 51–80
[2018-09-06] MEDS: HYDROCODONE/ACETAMINOPHEN 5/325 MG TAB PO PRN (02:02)
[2018-09-06] MEDS: HEPARIN SODIUM 5000UNIT/ML 1ML VIAL SQ SCH ×2 (02:03→17:16)
[2018-09-06 04:58] LABS: BASOPHILS % (AUTO) 0.7 % (0.0-5.0); EOSINOPHILS % (AUTO) 0.4 % (0.0-8.0); HEMATOCRIT 29.4 % (36-48); LYMPHOCYTES % (AUTO) 9.4 % (21.0-51.0); MEAN CORPUSCULAR HEMOGLOBIN 33.6 pg (27.0-33.0); MEAN CORPUSCULAR HGB CONC 32.7 g/dL (32.0-36.0); MEAN CORPUSCULAR VOLUME 102.8 fL (79-99); MONOCYTES % (AUTO) 7.2 % (3.0-13.0); NEUTROPHILS % (AUTO) 82.3 % (40.0-77.0); PLATELET COUNT (AUTO) 171 K/uL (130-400); RED BLOOD CELL COUNT(AUTO) 2.86 MIL/uL (4.00-5.50); RED CELL DISTRIBUTION WIDTH 25.5 % (11.0-15.5); WHITE BLOOD COUNT (AUTO) 6.3 K/uL (4.8-10.8)
[2018-09-06 05:11] LABS: CREATININE 4.7 mg/dL (0.5-1.5); POTASSIUM 3.9 mmol/L (3.5-5.1)
[2018-09-06] MEDS: INSULIN R PO SS1 SQ SCH ×4 (05:34→21:00)
[2018-09-06] MEDS: MORPHINE SULFATE 2 MG/ML 1ML SYG IVP PRN ×3 (06:57→22:36)
[2018-09-06] MEDS: AMLODIPINE BESYLATE 5 MG TAB PO SCH ×2 (09:00→12:53)
[2018-09-06] MEDS: FLUTICASONE PROPIONATE 50MCG/SPRAY 16 GM BOTTLE EN SCH (09:00)
[2018-09-06] MEDS: ZOSYN 3.375GM+NS 50ML 50 ML IV SCH ×2 (09:29→22:36)
[2018-09-06] MEDS: FOLIC ACID/VITAMIN B COMP W-C 1 MG CAP/TAB PO SCH (09:30)
[2018-09-06] MEDS: CALCIUM ACETATE 667 MG CAPSULE PO SCH ×2 (09:30→16:59)
[2018-09-06] MEDS: PHENOBARBITAL 1/4 GR TABLET PO SCH (10:23)
[2018-09-06] MEDS: CARVEDILOL 3.125 MG TABLET PO SCH ×2 (12:53→22:37)
[2018-09-06 14:40] LABS: INR 1.18 (0.85-1.15); PROTHROMBIN TIME 12.3 SEC (9.6-11.6)
[2018-09-06] MEDS: ROSUVASTATIN CALCIUM PO SCH (21:00)
[2018-09-06] MEDS: CITALOPRAM 20 MG TABLET PO SCH (22:37)
[2018-09-07] MEDS: HYDROCODONE/ACETAMINOPHEN 5/325 MG TAB PO PRN ×2 (00:46→13:48)
[2018-09-07] MEDS: MORPHINE SULFATE 2 MG/ML 1ML SYG IVP PRN ×3 (03:27→22:27)
[2018-09-07] MEDS: HEPARIN SODIUM 5000UNIT/ML 1ML VIAL SQ SCH ×2 (03:29→15:45)
[2018-09-07 04:00] VITALS: BP 114/50
[2018-09-07] MEDS: INSULIN R PO SS1 SQ SCH ×4 (07:30→21:00)
[2018-09-07 08:12] VITALS: BP 120/60
[2018-09-07] MEDS: CALCIUM ACETATE 667 MG CAPSULE PO SCH ×2 (08:30→16:49)
[2018-09-07] MEDS: PHENOBARBITAL 1/4 GR TABLET PO SCH (08:30)
[2018-09-07] MEDS: FOLIC ACID/VITAMIN B COMP W-C 1 MG CAP/TAB PO SCH (08:31)
[2018-09-07] MEDS: ZOSYN 3.375GM+NS 50ML 50 ML IV SCH ×2 (08:31→22:19)
[2018-09-07] MEDS: FLUTICASONE PROPIONATE 50MCG/SPRAY 16 GM BOTTLE EN SCH (08:35)
[2018-09-07] MEDS: CARVEDILOL 3.125 MG TABLET PO SCH ×2 (09:00→22:22)
[2018-09-07 12:00] VITALS: BP 113/57
--- NOTE | 2018-09-07 13:53 | NUR ---
ANSWERING SERVICED WAS CALLED . . TO NOTIFY DR. TAN . FOR CLEARANCE OF PICC LINE,
[2018-09-07] MEDS: VANCOMYCIN 1.25 GM in SODIUM CHLORIDE 0.9% 250 ML IV NR ×3 (14:15→17:24)
--- NOTE | 2018-09-07 15:20 | NUR ---
DIALYSIS TREATMENT COMPLETED WITH A REMOVAL OF 2,750 CC . TOLERATE WELL .AND DR. TAN CALLED BACK AT 1439 . NO PICC LINE ,DUE TO ARMS .RESTRICTION. PT HX OF DIALYSIS TREATMENT.
[2018-09-07] MEDS: HEPARIN SODIUM 5000UNIT/ML 1ML VIAL IJ PRN (15:33)
[2018-09-07 15:56] VITALS: BP 143/64
[2018-09-07 19:48] VITALS: BP 113/55
[2018-09-07] MEDS: ROSUVASTATIN CALCIUM PO SCH (21:00)
[2018-09-07] MEDS: CITALOPRAM 20 MG TABLET PO SCH (22:19)
[2018-09-08 01:14] VITALS: BP 116/53
[2018-09-08 04:13] VITALS: BP 101/57
[2018-09-08] MEDS: HEPARIN SODIUM 5000UNIT/ML 1ML VIAL SQ SCH ×2 (04:46→15:45)
[2018-09-08] MEDS: INSULIN R PO SS1 SQ SCH ×2 (06:12→11:30)
[2018-09-08 07:00] VITALS: BP 101/36
[2018-09-08] MEDS: ZOSYN 3.375GM+NS 50ML 50 ML IV SCH (08:34)
[2018-09-08] MEDS: PHENOBARBITAL 1/4 GR TABLET PO SCH (08:35)
[2018-09-08] MEDS: FOLIC ACID/VITAMIN B COMP W-C 1 MG CAP/TAB PO SCH (08:35)
[2018-09-08] MEDS: CALCIUM ACETATE 667 MG CAPSULE PO SCH ×2 (08:35→17:00)
[2018-09-08] MEDS: FLUTICASONE PROPIONATE 50MCG/SPRAY 16 GM BOTTLE EN SCH (08:35)
[2018-09-08] MEDS: CARVEDILOL 3.125 MG TABLET PO SCH (08:35)
[2018-09-08] MEDS: AMLODIPINE BESYLATE 5 MG TAB PO SCH (08:36)
[2018-09-08 11:00] VITALS: BP 114/67
[2018-09-08 16:00] VITALS: BP 104/81
--- NOTE | 2018-09-08 17:05 | NUR ---
DC PLAN INFO SENT TO [facility] AND INSURANCE. AFTER MUCH BACK AND FORTH PATIENT WAS ACCEPTED 1555. LET NURSING KNOW. MED REC DONE. EMS SET UP. PASRR DONE. Addendum: 09/08/18 at 1708 by JOSEFA HARRISON RN CM Amended: Links added.
[2018-09-09] MEDS ORDERED: VANCOMYCIN 1.25 GM in SODIUM CHLORIDE 0.9% 250 ML IV NR (15:00)
== END 2018-09-08 18:00 | DRG 239 ==
LOC: EDH 15:28 → OBSVTOIN 17:33 → EDHIP 17:33 → 3DH 19:37
PROVIDERS: ADMIT Internal Medicine Critical Care Medicine; ATTEND Internal Medicine Critical Care Medicine
PROC: 3E0234Z Introduction of Serum, Toxoid and Vaccine into Muscle, Percutaneous Approach (ICD-10-PCS; 2018-09-01)
PROC: 5A1D70Z Performance of Urinary Filtration, Intermittent, Less than 6 Hours Per Day (ICD-10-PCS; 2018-09-02)
PROC: 5A1D70Z Performance of Urinary Filtration, Intermittent, Less than 6 Hours Per Day (ICD-10-PCS; 2018-09-05)
PROC: 0Y6M0ZB Detachment at Right Foot, Partial 2nd Ray, Open Approach (ICD-10-PCS; principal; 2018-09-05 13:39)
PROC: 5A1D70Z Performance of Urinary Filtration, Intermittent, Less than 6 Hours Per Day (ICD-10-PCS; 2018-09-07)
DX: E11.52 Type 2 diabetes mellitus with diabetic peripheral angiopathy with gangrene (principal); N18.6 End stage renal disease; I12.0 Hypertensive chronic kidney disease with stage 5 chronic kidney disease or end stage renal disease; J90 Pleural effusion, not elsewhere classified; L03.115 Cellulitis of right lower limb; I96 Gangrene, not elsewhere classified; M86.171 Other acute osteomyelitis, right ankle and foot; E11.22 Type 2 diabetes mellitus with diabetic chronic kidney disease; I08.0 Rheumatic disorders of both mitral and aortic valves; D63.1 Anemia in chronic kidney disease; E11.69 Type 2 diabetes mellitus with other specified complication; E11.621 Type 2 diabetes mellitus with foot ulcer; E66.9 Obesity, unspecified; E78.00 Pure hypercholesterolemia, unspecified; E78.5 Hyperlipidemia, unspecified; E87.70 Fluid overload, unspecified; I25.10 Atherosclerotic heart disease of native coronary artery without angina pectoris; L97.519 Non-pressure chronic ulcer of other part of right foot with unspecified severity; L97.529 Non-pressure chronic ulcer of other part of left foot with unspecified severity; Z66 Do not resuscitate; Z74.01 Bed confinement status; Z80.3 Family history of malignant neoplasm of breast; Z83.3 Family history of diabetes mellitus; Z88.2 Allergy status to sulfonamides; Z99.2 Dependence on renal dialysis; Z79.899 Other long term (current) drug therapy; Z90.49 Acquired absence of other specified parts of digestive tract; Z82.49 Family history of ischemic heart disease and other diseases of the circulatory system; Z88.8 Allergy status to other drugs, medicaments and biological substances; Z23 Encounter for immunization; Z68.30 Body mass index [BMI] 30.0-30.9, adult
CPT/HCPCS: 36415; 70450; 71045; 73630; 73718; 75635; 80048; 80053; 80074; 80202; 82550; 82948; 83605; 83735; 83874; 84100; 84484; 85025; 85027; 85610; 85651; 85730; 86140; 87040; 87520; 88304; 88305; 88311; 90715; 90935; 93005; 93925; 97039; G0378; J1644; J1650; J2175; J2543; J2704; J3370; J3490; J7030; J7070; Q9967